=== PATIENT | female | born 1940 | race Caucasian/White ===

== ENCOUNTER 2018-08-12 13:41 | Outpatient (CLI) | payer MEDICARE, BC | END 2018-08-12 13:42 | disposition home or self-care (01) | LOC: BICMAMMO 13:41 | PROVIDERS: ATTEND Internal Medicine | DX: N64.52 Nipple discharge (principal); N64.89 Other specified disorders of breast; Z80.3 Family history of malignant neoplasm of breast; Z98.890 Other specified postprocedural states | CPT/HCPCS: 77066; G0279 ==